=== PATIENT | female | born 1965 | race Caucasian/White ===

== ENCOUNTER → 2025-01-02 18:40 | Outpatient (REF) | payer BC, SELFPAY | LOC: WDC 18:40 | PROVIDERS: ATTENDING PHYSICIAN Obstetrics & Gynecology; FAMILY PHYSICIAN Family Medicine | DX: Z12.31 Encounter for screening mammogram for malignant neoplasm of breast (principal) | CPT/HCPCS: 77063; 77067 ==

== ENCOUNTER 2025-01-28 06:12 | Day surgery (SDC) | payer SELFPAY ==
[2025-01-28] VITALS (8 sets, daily range): BP systolic 93–137; BP diastolic 58–73; BMI 29.3
[2025-01-28] MEDS: NORMOSOL-R/PLASMALYTE-A 1000 IV (12:20)
== END 2025-01-28 14:44 | disposition home or self-care (01) ==
LOC: SDS 06:12
PROVIDERS: ATTENDING PHYSICIAN Obstetrics & Gynecology
DX: N87.1 Moderate cervical dysplasia (principal)
CPT/HCPCS: 57522; 88305; 88307